=== PATIENT | male | born 2005 | race Two or more races ===

== ENCOUNTER 2025-05-25 18:27 | Emergency (ER) | payer MEDICAID, OTHER ==
[~2025-05-25] VITALS: Ht 177.8 cm; Wt 74.4 kg
--- NOTE | 2025-05-25 19:30 | DVH ---
CLINICAL INDICATION: 1st digit injury/pain TECHNIQUE: XY R HAND 3 VIEW XRAY Comparison: None FINDINGS/IMPRESSION: : There is no evidence of acute fracture or dislocation. Soft tissues are unremarkable.
--- NOTE | 2025-05-25 19:34 | ED.PDOC ---
History of Present Illness HPI Comments 19 y/o M presents with c/c of right thumb pain s/p injury 2x days ago. 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 Information Source: Patient Mode of Arrival: Ambulatory Severity: Moderate Timing: Hours Duration: Since onset Prehospital treatment: None Past Medical History PAST MEDICAL HISTORY: Denies Surgical History: Denies all surgeries Family History Family History: Unknown Social History Smoker: Non-Smoker Alcohol: Denies ETOH Use Drugs: Denies Drug Use Lives In: Home All Other Systems: Reviewed and Negative (As per HPI) Physical Exam General Appearance: No Apparent Distress, Normal HEENT: Pharynx Normal Neck: Full Range of Motion, Non-Tender Respiratory: Lungs Clear, No Respiratory Distress, Normal Breath Sounds Cardiovascular: No Murmur, Normal Peripheral Pulses, Regular Rate/Rhythm Breast Exam: Deferred Gastrointestinal: Non Tender, Soft Genitalia: Deferred Pelvic: Deferred Rectal: Deferred Extremities: Normal capillary refill, Normal range of motion, Non-tender Musculoskeletal : Location: Right Extremity Location: Thumb (Distal thumb ecchymosis under nail hematoma cuticle moderate tenderness on palpation strength sensory and motion intact) Apperance: Normal Neurologic: Alert, No Motor Deficits, Normal Affect, Normal Mood, No Sensory Deficits Cerebellar Function: Normal Reflexes: NOT DONE Skin: Dry, Normal Color, Warm Lymphatic: No Adenopathy Was a procedure done? Was a procedure done?: No Differential Dx Considerations may include: fracture, contusion, sprain, dislocation, avulsion, laceration, among others X-Ray, Labs, Meds, VS Vital Signs Date Time Temp Pulse Resp B/P (MAP) Pulse Ox O2 Delivery O2 Flow Rate FiO2 05/25/25 20:01 98.8 62 18 131/94 (106) 97 98.8 05/25/25 20:01 62 18 97 Room Air 05/25/25 18:28 98.1 88 18 151/95 100 98.1 Current Medications Medications (Trade) Dose Ordered Sig/Messi Route Start Time Stop Time Status Last Admin Ibuprofen (Motrin Tablet) 800 mg ONCE ONCE PO 05/25/25 20:00 05/25/25 20:01 DC 05/25/25 20:01 X-Ray, Labs, Meds, VS Comment Right hand x-ray thumb shows no acute fractures subluxations or dislocations. Script trial of anti-inflammatory his advised on rice. Advised on ER return precautions patient indicates understanding agrees with discharge plan of care. Images Reviewed?: Images reviewed and evaluated by me Time of 1ST Reevaluation: 20:00 Reevaluation 1ST: Unchanged Time of 2ND Reevaluation: 19:35 Reevaluation 2ND: Improved Patient Education/Counseling: Diagnosis, Treatment, Need For Follow Up Family Education/Counseling: No Family Present SEPSIS Sepsis Screen Date sepsis recognized/suspect: May 25, 2025 Time Sepsis recognized/suspect: 1828 Recent Procedure: No On Antibiotic Therapy: No Respiratory Rate >20: No Heart Rate >90: No Temp<36 C (96.8 F) or >38.3 C: No SBP <90 or MAP <65 mmHG: No New Acute Mental Status Change: No Is the patient on CPAP, BIPAP,: No Physician Orders R Hand 3 View Xray (05/25/25 18:37) Vital Signs Date Time Temp Pulse Resp B/P (MAP) Pulse Ox O2 Delivery O2 Flow Rate FiO2 05/25/25 20:01 98.8 62 18 131/94 (106) 97 98.8 05/25/25 20:01 62 18 97 Room Air 05/25/25 18:28 98.1 88 18 151/95 100 98.1 Medications Medications Dose Ordered Sig/Messi Route Start Time Stop Time Status Last Admin Dose Admin Ibuprofen 800 mg ONCE ONCE PO 05/25/25 20:00 05/25/25 20:01 DC 05/25/25 20:01 Departure 1 Departure Time of Disposition: 19:47 Impression: Primary Impression: Contusion of thumb with damage to nail Qualified Codes: S60.111A - Contusion of right thumb with damage to nail, initial encounter Disposition: HOME / SELF CARE / HOMELESS Condition: Stable e-Prescriptions Ibuprofen (Ibuprofen) 800 Mg Tab 800 MG PO Q8HP PRN for 6 Days, #18 TAB Prov: TIM VALADEZ 05/25/25 Discharged With: Self Critical Care Note Critical Care Time?: No Stability Stability form required: No Heart Score Heart Score: Heart Score Response (Comments) Value History N/A 0 EKG N/A 0 Age N/A 0 Risk Factors N/A 0 Troponin N/A 0 Total 0 I personally scribed for ER ([email or web address]) on 05/25/25 at 19:34. Electronically submitted by Logan Barragan ([email or web address]). ER May 25, 2025 19:34 TIM VALADEZ CD[employer] May 25, 2025 19:35
[2025-05-25] MEDS ORDERED: IBUP-1456 PO (19:48)
[2025-05-25 20:01] VITALS: BP 131/94; PULSE 62; RESP 18; TEMP 98.8; O2SAT 97
[2025-05-25] MEDS: IBUPROFEN 800 MG TAB PO ONE (20:01)
== END 2025-05-25 20:16 | disposition home or self-care (01) ==
LOC: ER 18:27
DX: S60.111A Contusion of right thumb with damage to nail, initial encounter (principal); Z79.899 Other long term (current) drug therapy; X58.XXXA Exposure to other specified factors, initial encounter; Y93.89 Activity, other specified; Y92.89 Other specified places as the place of occurrence of the external cause; Y99.8 Other external cause status
CPT/HCPCS: 73130